=== PATIENT | female | born 1970 | race Caucasian/White ===

== ENCOUNTER 2016-08-29 21:38 | Emergency (ER) | payer OTHER ==
--- NOTE | 2016-08-29 22:29 | RAD ---
ONE VIEW CHEST: History: Syncope. Comparison: 02-08-10 FINDINGS: Normal cardiac silhouette. Pulmonary vessels and hilum are normal. Costophrenic angles are clear. No masses or consolidation. No pneumothorax or osseous abnormality. IMPRESSION: No acute cardiopulmonary process. POS: [facility]
[2016-08-29 22:39] LABS: INR-International Normal Ratio 0.9; Prothrombin Time 12.9 SEC (12.0-14.7)
[2016-08-29 22:41] LABS: White Blood Cell (WBC) Count 6.4 thou/uL (4.8-10.8)
[2016-08-29 22:42] LABS: #Basophils 0.1 thou/uL (0.0-0.2); #Eosinphils 0.1 thou/uL (0.0-0.7); #Lymphocytes 2.1 thou/uL (1.20-3.40); #Monocytes 0.4 thou/uL (0.11-0.59); #Neutrophils 3.8 thou/uL (1.40-6.50); %Basophils 1.1 % (0.0-1.0); %Eosinophils 1.3 % (0.0-10.0); %Monocytes 5.7 % (0.0-10.0); %Neutrophils 58.9 % (42.0-75.0); Hemoglobin 15.8 g/dL (12.0-16.0); Mean Corpuscular HGB CONC 32.8 g/dL (32.0-36.0); Mean Corpuscular Hemoglobin 31.8 pg (27.0-31.0); Mean Corpuscular Volume 97.1 fL (81.0-99.0); Mean Platelet Volume 8.3 fL (7.4-10.4); Platelet Count 264 thou/uL (130-400); RBC Distribution Width 12.4 % (11.5-14.5); Red Blood Cell (RBC) Count 4.95 mill/uL (4.20-5.40)
[2016-08-29 22:43] LABS: BHCG - Serum Negative (NEGATIVE); PTT 19.2 SEC (22.9-36.1); Pregs Control Background? CLEAR/WHITE (CLR/WHITE); Pregs Control Bar Appear? YES (CONTROL BAR)
[2016-08-29 22:56] LABS: ALT (SGPT) 20 U/L (8-55); AST (SGOT) 22 U/L (5-34); Acetaminophen Less than 6.0 mcg/mL (10.0-30.0); Albumin 4.6 g/dL (3.5-5.0); Alcohol 30 mg/dL (Less than 10); Alkaline Phosphatase 65 U/L (40-150); Anion Gap 19 mmol/L (10-20); BUN (Urea Nitrogen) 14 mg/dL (7.0-18.7); Bilirubin, Total 0.5 mg/dL (0.2-1.2); Calc. Creatinine Clearance 0 mL/min (70-130); Calcium 9.1 mg/dL (7.8-10.44); Carbon Dioxide 21 mmol/L (22-29); Chloride 103 mmol/L (98-107); Estimated GFR-MDRD 71; Globulin 3.5 g/dL (2.4-3.5); Glucose 109 mg/dL (70-105); Magnesium 2.5 mg/dL (1.6-2.6); Potassium 3.1 mmol/L (3.5-5.1); Protein, Total 8.1 g/dL (6.0-8.3); Salicylate Less than 8.0 mg/dL (15.0-30.0); Sodium 140 mmol/L (136-145)
[2016-08-29 23:04] LABS: CKMB 0.7 ng/mL (0-6.6); Troponin I Less than 0.010 ng/mL (< 0.028)
[2016-08-29 23:14] LABS: D-Dimer Test Less than 0.27 *mcg/mL (0.27-0.43)
[2016-08-29 23:31] LABS: Cocaine Metabolite Screen Not Detected (NotDetected); Methamphetamine Not Detected (NotDetected); Opiate Screen Not Detected (NotDetected); Phencyclidine (PCP) Not Detected (NotDetected); THC/Cannabinoid Screen Not Detected (NotDetected)
[2016-08-29 23:32] LABS: Amphetamine Not Detected (NotDetected); Bacteria/HPF Rare-Few HPF (None Seen); Barbiturates Screen Not Detected (NotDetected); Benzodiazepine Screen Not Detected (NotDetected); Bilirubin Negative (Negative); Blood, Urine Trace (Negative); Clarity Clear (Clear); Glucose, Urine (Dipstick) Negative (Negative); Leukocyte Negative (Negative); Medtox Control Line Valid? VALID (VALID); Methadone Not Detected (NotDetected); Nitrite Negative (Negative); Oxycodone Screen Not Detected (NotDetected); Protein, Urine (Dipstick) Negative (Neg-Trace); Tricyclic Screen Not Detected (NotDetected); Urobilinogen 0.2 mg/dL (0.2-1.0); pH, Urine 5.5 (5.0-9.0)
[2016-08-30] MEDS ORDERED: Sulfameth/Trimethoprim DS 800-160mg TAB ONE (00:57)
--- NOTE | 2016-08-30 01:00 | CT ---
EXAM: NONCONTRAST HEAD CT HISTORY: Syncope. COMPARISON: None. TECHNIQUE: Noncontrast head CT is performed from skull base to skull vertex. FINDINGS: No parenchymal hemorrhage. No extraaxial hematoma. No midline shift. Basilar cisterns are patent. Brain volume is age-appropriate. Cortical vásquez-white matter differentiation is preserved. Ventricles and sulci are patent and symmetric. Calvarium is intact. Adequate aeration of the sinuses and mastoid air cells. IMPRESSION: No acute intracranial process. POS: [facility]
== END 2016-08-30 01:01 | disposition home or self-care (01) ==
LOC: MADERS 21:38
DX: R55 Syncope and collapse (principal); N39.0 Urinary tract infection, site not specified
CPT/HCPCS: 36415; 70450; 71010; 80053; 80306; 80307; 81001; 82553; 83735; 83880; 84443; 84484; 84703; 85025; 85379; 85610; 85730; 87086; 93005; 94760; A4216

== ENCOUNTER 2018-06-10 22:59 | Emergency (ER) | payer OTHER ==
[2018-06-10] MEDS ORDERED: Magnesium Sulfate 2 GM/NS 0.9% 50 ML BAG ONE (23:31)
== END 2018-06-10 23:45 | disposition home or self-care (01) ==
LOC: MADERS 22:59
DX: G43.009 Migraine without aura, not intractable, without status migrainosus (principal); I34.1 Nonrheumatic mitral (valve) prolapse; F17.290 Nicotine dependence, other tobacco product, uncomplicated
CPT/HCPCS: 99283; J3475

== ENCOUNTER 2019-07-22 17:23 | Outpatient (CLI) | payer BC, OTHER ==
--- NOTE | 2019-07-22 17:48 | RAD ---
EXAM: CHEST TWO VIEWS: 07/22/19 HISTORY: Epigastric abdominal pain. COMPARISON: 08/29/16. FINDINGS/IMPRESSION: Heart size is normal. The lungs are clear. No confluent pneumonia, overt edema, or pleural effusion. POS: [facility]
== END 2019-07-22 17:24 | disposition home or self-care (01) ==
LOC: MADRAD 17:23
PROVIDERS: ATTEND Family Medicine
DX: R10.13 Epigastric pain (principal)
CPT/HCPCS: 71046

== ENCOUNTER 2021-05-24 16:07 | Emergency (ER) | payer BC, OTHER ==
[2021-05-24] MEDS ORDERED: Mag-Al Plus 1200 MG/1200 MG/120 MG/30 ML UDCUP ONE (16:41)
[2021-05-24] MEDS ORDERED: Lidocaine Viscous Sol 2% 15 ml UD Cup ONE (16:41)
== END 2021-05-24 17:30 | disposition home or self-care (01) ==
LOC: MADERS 16:07
DX: K21.9 Gastro-esophageal reflux disease without esophagitis (principal)
CPT/HCPCS: 99283